=== PATIENT | female | born 1980 | race Caucasian/White ===

== ENCOUNTER 2018-05-19 03:54 | Emergency (ER) | payer MEDICAID ==
[~2018-05-19] VITALS: Ht 160 cm; Wt 58.3 kg
[~2018-05-19 03:54] MED LIST: CIPR500T87; OXYC-293
[2018-05-19 03:55] VITALS: BP 127/89
[2018-05-19] MEDS ORDERED: HYDROcodone/APAP 5/325 TABLET ONE (04:11)
[2018-05-19] MEDS ORDERED: HYDROcodone/APAP 5/325 TABLET PO ONE (04:30)
== END 2018-05-19 04:42 | disposition home or self-care (01) ==
LOC: ED 04:40
DX: K08.89 Other specified disorders of teeth and supporting structures (principal); F17.200 Nicotine dependence, unspecified, uncomplicated
CPT/HCPCS: 99283

== ENCOUNTER 2018-06-02 20:38 | Emergency (ER) | payer MEDICAID ==
[~2018-06-02] VITALS: Ht 160 cm; Wt 58.0 kg
--- NOTE | 2018-06-02 21:36 | NUR ---
FIRST CONTACT WITH PT. PT C/O [id number] DAYS W/ HX OF SAME. DENIES PHOTOPHOBIA OR SENSITIVITY TO SOUND. DENIES NAUSEA. STATES 1 ROUND OF EMESIS YESTERDAY. C/O MIID UPPER BACK PAIN. DENIES SYMPTOMS. PT'S AOX4. RESPS EVEN AND UNLABORED. BP/SPO2 MONITORS IN PLACE. CALL LIGHT WITHIN REACH.
[2018-06-02] MEDS ORDERED: DIPHENHYDRAMINE 50 MG/ML, 1ML ONE (21:58)
[2018-06-02] MEDS ORDERED: KETOROLAC 30 MG/1 ML ONE (21:58)
[2018-06-02] MEDS ORDERED: PROCHLORPERAZINE 5 MG/ML, 2ML ONE (21:58)
[2018-06-02] MEDS ORDERED: PROCHLORPERAZINE 5 MG/ML, 2ML IVPush ONE (22:00)
[2018-06-02] MEDS ORDERED: DIPHENHYDRAMINE 50 MG/ML, 1ML IVPush ONE (22:00)
[2018-06-02] MEDS ORDERED: KETOROLAC 30 MG/1 ML IVPush ONE (22:00)
--- NOTE | 2018-06-02 22:19 | NUR ---
PT MEDICATED PER EMAR. PT TOLERATED WELL. PT'S AOX4. RESPS EVEN AND UNLABORED.
--- NOTE | 2018-06-02 22:19 | NUR ---
AFTER PT MEDICATED, PT C/O REDNESS AROUND FOREARM. EDMD NOTIFIED.
--- NOTE | 2018-06-02 22:41 | NUR ---
PT AMB TO BR AND BACK TO ROOM WITH STEADY GAIT.
[2018-06-02 23:11] VITALS: BP 120/83
--- NOTE | 2018-06-02 23:12 | NUR ---
PT GIVEN DC INSTRUCTIONS AND SCRIPT. PT'S AOX4. RESPS EVEN AND UNLABORED. PT AMB TO DC WITH STEADY GAIT. NO ACUTE DISTRESS AT DC.
== END 2018-06-02 23:13 | disposition home or self-care (01) ==
LOC: ED 21:15
DX: G43.009 Migraine without aura, not intractable, without status migrainosus (principal); M54.6 Pain in thoracic spine; F17.200 Nicotine dependence, unspecified, uncomplicated; J44.9 Chronic obstructive pulmonary disease, unspecified; Z86.19 Personal history of other infectious and parasitic diseases
CPT/HCPCS: 71046; 96374; 96375; 99283; J0780; J1200; J1885

== ENCOUNTER 2018-07-05 12:59 | Emergency (ER) | payer MEDICAID ==
[~2018-07-05] VITALS: Ht 160 cm; Wt 55.2 kg
--- NOTE | 2018-07-05 13:25 | NUR ---
PT TO ROOM 16 W CO N/V X 3 DAYS. PT ALSO HAS C/O RUQ AND LUQ ABD PAIN. PT ALSO STATES SHE HAS COLITIS. PT RESTING ON GURNEY. NADN. PT STATES SHE IS UNABLE TO PROVIDE UA SAMPLE AT THIS TIME. WARM BLANKET PROVIDED. MONITORS APPLIED.
[2018-07-05] MEDS ORDERED: ONDANSETRON ODT 4 MG ONE (13:42)
[2018-07-05 13:54] LABS: BASOPHILS # (AUTO) 0.05 x10^3/uL (0-0.1); BASOPHILS % (AUTO) 1 % (0-1); EOSINOPHILS # (AUTO) 0.14 x10^3/uL (0-0.4); EOSINOPHILS % (AUTO) 2 % (1-7); LYMPHOCYTES % (AUTO) 34 % (22-44); MD NO; MEAN CORPUSCULAR HEMOGLOBIN 30.4 pg (27.0-34.8); MEAN CORPUSCULAR HGB CONC 33.6 g/dL (32.4-35.8); MEAN CORPUSCULAR VOLUME 90.5 fL (80-100); MEAN PLATELET VOLUME 7.7 fL (7.4-10.4); MONOCYTES # (AUTO) 0.37 x10^3/uL (0.2-0.8); MONOCYTES % (AUTO) 6 % (2-9); NEUTROPHILS # (AUTO) 3.46 x10^3/uL (1.8-6.8); NEUTROPHILS % (AUTO) 57 % (42-75); PLATELET COUNT 234 x10^3/uL (130-400); RED BLOOD COUNT 4.64 x10^6/uL (3.82-5.3); RED CELL DISTRIBUTION WIDTH 13.1 % (9.6-15.2)
[2018-07-05] MEDS ORDERED: ONDANSETRON ODT 4 MG PO ONE (14:00)
[2018-07-05 14:06] LABS: ALANINE AMINOTRANSFERASE 71 U/L (12-78); ALBUMIN 3.5 g/dL (3.4-5.0); ANION GAP 5 mmol/L (5-15); CALCIUM 8.7 mg/dL (8.5-10.1); CHLORIDE 112 mmol/L (98-107); CREATININE 0.75 mg/dL (0.55-1.02)
[2018-07-05 14:11] LABS: ALKALINE PHOSPHATASE 70 U/L (45-117); BILIRUBIN,TOTAL 0.2 mg/dL (0.2-1.0); TOTAL PROTEIN 7.3 g/dL (6.4-8.2)
[2018-07-05 14:27] LABS: MICROSCOPIC AUTO
[2018-07-05 14:29] LABS: CULTURE INDICATED? YES
--- NOTE | 2018-07-05 14:35 | NUR ---
PT CHART REVIEWED AND PLACED FOR RECHECK.
[2018-07-05 14:47] VITALS: BP 126/78
--- NOTE | 2018-07-05 14:48 | NUR ---
PT RESTING ON GURNEY. NADN. TANG.
== END 2018-07-05 15:28 | disposition home or self-care (01) ==
LOC: ED 15:11
DX: K29.00 Acute gastritis without bleeding (principal); J44.9 Chronic obstructive pulmonary disease, unspecified; G43.909 Migraine, unspecified, not intractable, without status migrainosus; Z86.19 Personal history of other infectious and parasitic diseases
CPT/HCPCS: 36415; 80053; 81001; 84703; 85025; 87086; 99283; Q0162

== ENCOUNTER 2018-08-08 13:24 | Emergency (ER) | payer MEDICAID ==
--- NOTE | 2018-08-08 13:50 | NUR ---
NO ANSWER IN LOBBY AT THIS TIME.
--- NOTE | 2018-08-08 13:55 | NUR ---
NO ANSWER IN LOBBY AT THIS TIME.
--- NOTE | 2018-08-08 14:18 | NUR ---
NO ANSWER IN LOBBY AT THIS TIME.
== END 2018-08-08 14:21 | disposition left against medical advice (07) ==
LOC: ED 14:15
DX: G43.909 Migraine, unspecified, not intractable, without status migrainosus (principal); R11.10 Vomiting, unspecified; R53.1 Weakness; Z53.21 Procedure and treatment not carried out due to patient leaving prior to being seen by health care provider

== ENCOUNTER 2018-08-26 16:48 | Emergency (ER) | payer MEDICAID ==
[~2018-08-26] VITALS: Ht 160 cm; Wt 53.0 kg
[2018-08-26 16:58] VITALS: BP 121/81
== END 2018-08-26 17:40 | disposition home or self-care (01) ==
LOC: ED 17:34
DX: J06.9 Acute upper respiratory infection, unspecified (principal); J44.9 Chronic obstructive pulmonary disease, unspecified; Z86.19 Personal history of other infectious and parasitic diseases
CPT/HCPCS: 71046; 99283

== ENCOUNTER 2019-01-16 11:27 | Emergency (ER) | payer MEDICAID ==
[~2019-01-16] VITALS: Ht 160 cm; Wt 55.4 kg
[2019-01-16 11:33] VITALS: BP 112/86
--- NOTE | 2019-01-16 12:35 | NUR ---
PT HAS CO VAG DISCHARGE AND ITCHING 2 DAYS. PT STATES HX OF YEAST INFECITON AND BACT. VAGINOSIS. PT VOIDED FOR UA. PT ON MESSAGING ARCHITECT BED, READY FOR EXAM .
[2019-01-16 12:48] LABS: CULTURE INDICATED? YES; MICROSCOPIC INDICATED
[2019-01-16 13:01] LABS: CLUE CELLS PRESENT (NONE SEEN); WET PREP WBCS MODERATE (FEW)
--- NOTE | 2019-01-16 13:16 | NUR ---
Patient/Caregiver given discharge instructions and they have confirmed that they understand the instructions. Patient ambulatory with steady gait.
== END 2019-01-16 13:40 ==
LOC: ED 13:00
DX: N76.0 Acute vaginitis (principal); N30.01 Acute cystitis with hematuria; J44.9 Chronic obstructive pulmonary disease, unspecified
CPT/HCPCS: 81001; 81025; 87077; 87086; 87186; 87210; 87491; 87591; 87808; 99283

== ENCOUNTER 2019-12-22 17:18 | Emergency (ER) | payer MEDICAID ==
[~2019-12-22] VITALS: Ht 160 cm; Wt 54.2 kg
[2019-12-22 17:25] VITALS: BP 124/91
--- NOTE | 2019-12-22 17:49 | NUR ---
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
[2019-12-22] MEDS ORDERED: HYDROcodone/APAP 5/325 TABLET PO ONE (18:30)
== END 2019-12-22 19:28 | disposition home or self-care (01) ==
LOC: ED 18:06
DX: K08.89 Other specified disorders of teeth and supporting structures (principal); F17.290 Nicotine dependence, other tobacco product, uncomplicated; J44.9 Chronic obstructive pulmonary disease, unspecified
CPT/HCPCS: 99283; 99406

== ENCOUNTER 2020-01-24 02:29 | Emergency (ER) | payer MEDICAID ==
[~2020-01-24] VITALS: Ht 160 cm; Wt 53.3 kg
--- NOTE | 2020-01-24 02:32 | NUR ---
NOT IN LOBBY
[2020-01-24] MEDS ORDERED: HYDROcodone/APAP 5/325 TABLET PO ONE (03:00)
[2020-01-24] MEDS ORDERED: LIDOCAINE 1%, 2ML INFIL ONE (03:00)
[2020-01-24] MEDS ORDERED: BUPIVACAINE 0.25% INFIL ONE (03:00)
[2020-01-24] MEDS ORDERED: BUPIVACAINE 0.25% ONE ×2 (03:06→03:23)
[2020-01-24] MEDS ORDERED: LIDOCAINE-MPF 1%, 5ML ONE ×2 (03:06→03:23)
[2020-01-24] MEDS ORDERED: OXYcodone/APAP 10/325MG TABLET ONE (03:06)
[2020-01-24] MEDS ORDERED: HYDROcodone/APAP 5/325 TABLET ONE (03:12)
[2020-01-24 03:38] VITALS: BP 134/78
== END 2020-01-24 03:41 | disposition home or self-care (01) ==
LOC: ED 03:20
DX: K02.9 Dental caries, unspecified (principal); J44.9 Chronic obstructive pulmonary disease, unspecified; F17.200 Nicotine dependence, unspecified, uncomplicated; G43.909 Migraine, unspecified, not intractable, without status migrainosus
CPT/HCPCS: 64400; 99284; J3490

== ENCOUNTER 2020-02-08 21:54 | Emergency (ER) | payer MEDICAID ==
[~2020-02-08] VITALS: Ht 160 cm; Wt 53.8 kg
[2020-02-08] MEDS ORDERED: CLINDAMYCIN 300 MG CAPSULE PO ONE (22:30)
[2020-02-08] MEDS ORDERED: DIPH,PERTUSS(ACELL),TET VAC/PF NC IM-VACC ONE (22:30)
[2020-02-08] MEDS ORDERED: OXYcodone/APAP 5/325MG TABLET PO ONE (22:30)
[2020-02-08] MEDS ORDERED: IBUPROFEN 200 MG TABLET PO ONE (22:30)
--- NOTE | 2020-02-08 22:35 | NUR ---
PT. IS A & O X 4 WITH A GCS OF 15. PT. HAS C/O A RIGHT HAND ABSCESS WITH STREAKING UP HER ARM. IV ACCESS ESTABLISHED. PT.'S CAP REFILL IS BRISK, LESS THAN 2 SECONDS. PULSES ARE +2 THROUGHOUT. LUNGS ARE CTA. MM ARE PINK AND MOIST. PT.'S ABD. IS SOFT AND FLAT WITH BS + X 4 QUADS. PT.'S IV ABX ORDERED FROM PHARMACY. CALL LIGHT IN PLACE AND SIDERAILS REMAIN UP X 2.
[2020-02-08] MEDS ORDERED: IBUPROFEN 600 MG TABLET ONE (22:40)
[2020-02-08] MEDS ORDERED: OXYcodone/APAP 5/325MG TABLET ONE (22:41)
[2020-02-08] MEDS ORDERED: DIPH,PERTUSS(ACELL),TET VAC/PF 0.5 ML IM-VACC ONE (22:41)
[2020-02-08] MEDS ORDERED: CLINDAMYCIN PMX 600MG/50ML 50 ML ONE (22:41)
[2020-02-08] MEDS ORDERED: CLINDAMYCIN PMX 600MG/50ML 50 ML IV ONE (23:00)
--- NOTE | 2020-02-09 00:01 | NUR ---
PT.'S IV ABX ARE FINISHED. PT. WAS GIVEN DISCHARGE INSTRUCTIONS AND SCRIPTS WITH UNDERSTANDING VERBALIZED ALONG WITH WILLINGNESS TO COMPLY. PT.'S IV WAS DCD',CATH TIP INTACT. PRESSURE HELD WITH HEMOSTASIS ACHIEVED. PT. WAS AMBULATORY TO THE DISCHARGE DESK. VSS. PT. STATES HER S/O IS DRIVING AND SHE WAS INSTRUCTED NOT TO DRIVE. PT. REPORTS RELIEF FROM HER PAIN MEDS.
[2020-02-09 00:05] VITALS: BP 125/90
== END 2020-02-09 00:09 | disposition home or self-care (01) ==
LOC: ED 23:35
DX: L03.113 Cellulitis of right upper limb (principal); F17.290 Nicotine dependence, other tobacco product, uncomplicated; R00.0 Tachycardia, unspecified; J44.9 Chronic obstructive pulmonary disease, unspecified; G43.909 Migraine, unspecified, not intractable, without status migrainosus
CPT/HCPCS: 90471; 90715; 96365; 99284; 99406

== ENCOUNTER 2020-03-09 05:10 | Emergency (ER) | payer MEDICAID ==
[~2020-03-09] VITALS: Ht 160 cm; Wt 52.0 kg
[2020-03-09 05:20] VITALS: BP 135/98
--- NOTE | 2020-03-09 05:24 | NUR ---
BIBA FOR RIGHT NECK/ARM PAIN/SPASM/NUMBNESS STARTING ABOUT 2200 LAST NIGHT AFTER TALKING ON THE PHONE WHILE WALKING HOME. PT DENIES TRAUMA AND IS RIGHT HANDED. PT RECEIVED 500 MG TYLENOL AND 600 MG IBUPRPOFEN BY [facility].
== END 2020-03-09 05:52 | disposition home or self-care (01) ==
LOC: ED 05:35
DX: G56.01 Carpal tunnel syndrome, right upper limb (principal); R20.0 Anesthesia of skin; F17.200 Nicotine dependence, unspecified, uncomplicated
CPT/HCPCS: 29125; 93005; 99283

== ENCOUNTER 2020-08-08 16:33 | Emergency (ER) | payer MEDICAID ==
[~2020-08-08] VITALS: Ht 160 cm; Wt 55.0 kg
--- NOTE | 2020-08-08 17:57 | NUR ---
TO RM 15 FROM [employer]. PT STATES THAT SHE FELL WHILE CLEANING IN YARD AT A PERSON'S HOUSE WHO IS A HOARDER AND LANDED ON HER LEFT SIDE ON A PILE OF BIKES. PT HAS PAIN UPPER LEFT RIB CAGE AND BACK
[2020-08-08 18:27] LABS: HCG UR SG 1.025 (1.003-1.030); MICROSCOPIC INDICATED
[2020-08-08] MEDS ORDERED: KETOROLAC 30 MG/1 ML IM ONE (18:30)
[2020-08-08] MEDS ORDERED: KETOROLAC 30 MG/1 ML ONE (18:44)
[2020-08-08 18:52] VITALS: BP 126/88
--- NOTE | 2020-08-08 18:53 | NUR ---
REPORT TO LETTY GOODE
== END 2020-08-08 19:27 | disposition home or self-care (01) ==
LOC: ED 18:42
DX: S20.212A Contusion of left front wall of thorax, initial encounter (principal); N39.0 Urinary tract infection, site not specified; R31.9 Hematuria, unspecified; F17.210 Nicotine dependence, cigarettes, uncomplicated; J44.9 Chronic obstructive pulmonary disease, unspecified; G43.909 Migraine, unspecified, not intractable, without status migrainosus; W01.0XXA Fall on same level from slipping, tripping and stumbling without subsequent striking against object, initial encounter; Y93.89 Activity, other specified; Y92.89 Other specified places as the place of occurrence of the external cause; Y99.8 Other external cause status
CPT/HCPCS: 71046; 81001; 81025; 87077; 87086; 96372; 99284; J1885; 87186

== ENCOUNTER 2020-08-22 06:57 | Emergency (ER) | payer MEDICAID ==
[~2020-08-22] VITALS: Ht 160 cm; Wt 51.6 kg
[2020-08-22] MEDS ORDERED: ONDANSETRON 2MG/ML, 2ML ONE (07:24)
[2020-08-22] MEDS ORDERED: MORPHINE SULFATE 4 MG/ML, 1ML ONE (07:24)
[2020-08-22] MEDS ORDERED: MORPHINE SULFATE 4 MG/ML, 1ML IVPush PRN (07:30)
[2020-08-22] MEDS ORDERED: SODIUM CHLORIDE FLUSH 10ML SYR IVF ONE (07:30)
[2020-08-22] MEDS ORDERED: SODIUM CHLORIDE 0.9% 1,000ML IVBOLUS ONE (07:30)
[2020-08-22] MEDS ORDERED: ONDANSETRON 2MG/ML, 2ML IVPush ONE (07:30)
[2020-08-22 07:49] LABS: BASOPHILS % (AUTO) 2 % (0-1); EOSINOPHILS % (AUTO) 3 % (1-7); LYMPHOCYTES % (AUTO) 30 % (22-44); MEAN CORPUSCULAR HEMOGLOBIN 31.5 pg (27.0-34.8); MEAN CORPUSCULAR HGB CONC 34.5 g/dL (32.4-35.8); MEAN PLATELET VOLUME 7.7 fL (7.4-10.4); MONOCYTES % (AUTO) 8 % (2-9); NEUTROPHILS % (AUTO) 57 % (42-75); PLATELET COUNT 235 x10^3/uL (130-400); RED BLOOD COUNT 4.46 x10^6/uL (3.82-5.3); RED CELL DISTRIBUTION WIDTH 12.9 % (9.6-15.2)
[2020-08-22 07:56] LABS: ALANINE AMINOTRANSFERASE 53 U/L (12-78); ALBUMIN 3.2 g/dL (3.4-5.0); ANION GAP 6 mmol/L (5-15); CALCIUM 8.4 mg/dL (8.5-10.1); CHLORIDE 110 mmol/L (98-107); CREATININE 0.65 mg/dL (0.55-1.02)
[2020-08-22 07:56] LABS: MICROSCOPIC INDICATED
[2020-08-22 08:00] LABS: ALKALINE PHOSPHATASE 95 U/L (45-117); BILIRUBIN,TOTAL 0.4 mg/dL (0.2-1.0); TOTAL PROTEIN 7.1 g/dL (6.4-8.2)
[2020-08-22] MEDS ORDERED: OMNIPAQUE 350 MG/ML, 100ML BOTTLE ONE (08:24)
[2020-08-22] MEDS ORDERED: CEFTRIAXONE 1,000 MG in DEXTROSE 5% 50 ML IVPB ONE (08:30)
--- NOTE | 2020-08-22 08:54 | NUR ---
abx per may. pt sts pain relief after meds. bolus infused. ct pending. as
--- NOTE | 2020-08-22 08:56 | NUR ---
per last visit pt was treated w miky 08/08 for possilbe uti her.e as
[2020-08-22 09:57] VITALS: BP 145/98
== END 2020-08-22 09:59 | disposition home or self-care (01) ==
LOC: ED 07:41
DX: S22.42XA Multiple fractures of ribs, left side, initial encounter for closed fracture (principal); S30.1XXA Contusion of abdominal wall, initial encounter; I10 Essential (primary) hypertension; J44.9 Chronic obstructive pulmonary disease, unspecified; G43.909 Migraine, unspecified, not intractable, without status migrainosus; R07.89 Other chest pain; N30.00 Acute cystitis without hematuria; W18.30XA Fall on same level, unspecified, initial encounter; Y93.89 Activity, other specified; Y92.89 Other specified places as the place of occurrence of the external cause; Y99.8 Other external cause status
CPT/HCPCS: 36415; 71045; 71260; 74177; 80053; 81001; 84703; 85025; 87077; 87086; 96361; 96374; 96375; 99285; J2270; J2405; J7030; Q9967; 87186